=== PATIENT | female | born 1960 | race Caucasian/White ===

== ENCOUNTER 2024-06-02 06:20 | Day surgery (SDC) | payer OTHER, SELFPAY | END 2024-06-02 09:23 | disposition home or self-care (01) | LOC: GI 06:20 | PROVIDERS: ATTENDING PHYSICIAN Specialist; FAMILY PHYSICIAN Physician Assistant Medical | DX: Z12.11 Encounter for screening for malignant neoplasm of colon (principal); D12.3 Benign neoplasm of transverse colon; K63.5 Polyp of colon; Z86.0101 Personal history of adenomatous and serrated colon polyps | CPT/HCPCS: 45385; 45380; 88305 ==

== ENCOUNTER → 2024-06-13 06:35 | Outpatient (REF) | payer OTHER, SELFPAY | LOC: MRI 06:35 | PROVIDERS: ATTENDING PHYSICIAN Physician Assistant Medical | DX: G43.909 Migraine, unspecified, not intractable, without status migrainosus (principal) | CPT/HCPCS: 70551 ==